=== PATIENT | female | born 1945 | race Caucasian/White ===

== ENCOUNTER 2016-07-02 13:53 | Observation (INO) | payer OTHER ==
[~2016-07-02] VITALS: Ht 170.2 cm; Wt 102.6 kg
[2016-07-02 14:55] LABS: HEMATOCRIT 35.6 % (36.0-46.0); MCH 29.9 PG (29.0-34.0); MCHC 35.4 G/DL (30.0-36.0); MCV 84.4 FL (83-99); PLATELET COUNT 261 K/uL (156-360); RBC DIS.WIDTH-SD 38.9 % (39-53); RED BLOOD COUNT 4.22 M/uL (3.80-5.20); WHITE BLOOD COUNT 6.5 K/uL (4.1-10.2)
[2016-07-02 15:05] LABS: CHLORIDE 104 mEq/L (99-109); POTASSIUM 3.9 mEq/L (3.7-5.4); SODIUM 137 mEq/L (136-147)
[2016-07-02 15:07] LABS: GLUCOSE 93 mg/dL (70-99)
[2016-07-02 15:08] LABS: ANION GAP 11 MEQ/L (2-14)
[2016-07-02 15:10] LABS: GFR ESTIMATE (CALCULATED) > 59 mL/min/
[2016-07-02 15:11] LABS: UREA NITROGEN (BUN) 15 mg/dL (9-23)
[2016-07-02 15:17] LABS: TROP-I INTERPRETATION NEGATIVE; TROPONIN-I < 0.01 ng/mL (0.0-0.30)
[2016-07-02] MEDS ORDERED: CYCLOBENZAPRINE10 MG PO (18:51)
[2016-07-02] MEDS ORDERED: HYDROCODON-ACE1 EAC7 PO (18:52)
[2016-07-02] MEDS ORDERED: GABAPENTIN300 MG PO ×2 (18:52→18:53)
[2016-07-02] MEDS ORDERED: CITALOPRAM HBR20 MG PO (18:53)
[2016-07-02] MEDS ORDERED: ONE DAILY FOR1 EAC3 PO (18:54)
[2016-07-02] MEDS ORDERED: MELATONIN5 M1 PO (18:54)
[2016-07-02] MEDS ORDERED: LISINOPRIL-HCT1 EAC3 PO (18:57)
[2016-07-02 22:36] VITALS: BP 156/80
[2016-07-03 04:07] VITALS: BP 121/67
[2016-07-03 06:27] LABS: ADD MIUA? NO; BILIRUBIN NEGATIVE; BLOOD NEGATIVE; COLOR YELLOW ((YELLOW)); GLUCOSE (STRIP) NEGATIVE; KETONES NEGATIVE; LEUKOCYTES NEGATIVE; NITRITE NEGATIVE; PH, URINE 6.5 (5-8); PROTEIN (STRIP) NEGATIVE; SPECIFIC GRAVITY 1.007 (1.000-1.030); UCUL ADDED? NO; UROBILINOGEN 0.2 MG/DL (0.2-1.0)
[2016-07-03 06:28] LABS: EOSINOPHIL (%) 0 % (0-5); HEMATOCRIT 32.9 % (36.0-46.0); IMMATURE GRANULOCYTE (%) 0.2 % (0.0-0.7); LYMPHOCYTE COUNT 0.8 K/uL (1.0-2.8); MCH 29.6 PG (29.0-34.0); MEAN PLAT.VOLUME 9.1 uM^3 (9.5-12.4); MONOCYTE (%) 1.4 % (3-12); MONOCYTE COUNT 0.1 K/uL (0-0.8); NEUTROPHIL (%) 78.4 % (45-76); NEUTROPHIL COUNT 3.3 K/uL (1.8-6.4); PLATELET COUNT 196 K/uL (156-360); RBC DIS.WIDTH-CV 13.4 % (11.8-14.6); RBC DIS.WIDTH-SD 42.6 % (39-53); RED BLOOD COUNT 3.78 M/uL (3.80-5.20)
[2016-07-03 06:29] LABS: WHITE BLOOD COUNT 4.2 K/uL (4.1-10.2)
[2016-07-03 06:40] LABS: ANION GAP 10 MEQ/L (2-14); CHLORIDE 107 MEQ/L (99-109); GFR ESTIMATE (CALCULATED) > 59 mL/min/; SAMPLE HEMOLYSIS CHECK 0; SAMPLE ICTERIC CHECK 0; SAMPLE LIPEMIA CHECK 0; SODIUM 139 MEQ/L (136-147); UREA NITROGEN (BUN) 12 mg/dL (9-23)
[2016-07-03 06:42] LABS: GLUCOSE 140 mg/dL (70-99)
[2016-07-03 07:05] VITALS: BP 123/58
[2016-07-03 10:40] LABS: INTERNAL CONTROL VALID? YES
[2016-07-03 12:25] VITALS: BP 132/73
[2016-07-03] MEDS ORDERED: TESSALON PERLE100 MG PO (13:02)
[2016-07-03] MEDS ORDERED: PROAIR HFA8.5 GM IH (13:02)
[2016-07-03] MEDS ORDERED: PREDNISONE20 MG PO (13:02)
[2016-07-03] MEDS ORDERED: MUCINEX1200 MG PO (13:02)
[2016-07-03] MEDS ORDERED: AZITHROMYCIN500 M1 PO (13:02)
== END 2016-07-03 13:44 | disposition home or self-care (01) ==
LOC: EME 13:53 → EDOF 21:25 → 5WEST 22:22
PROVIDERS: Hospitalist
DX: J20.9 Acute bronchitis, unspecified (principal); R06.02 Shortness of breath; I10 Essential (primary) hypertension; R05 Cough; Z96.653 Presence of artificial knee joint, bilateral; R06.2 Wheezing; R50.9 Fever, unspecified
CPT/HCPCS: 71020; 71275; 80048; 81003; 83880; 84484; 85025; 85027; 85379; 87070; 87205; 87449; 93005; 93970; 94640; 94640 76; 94760; 99202; 99281; 99285; G0378; J0456; J0696; J1650; J2930; J7030; J7050; J7512

== ENCOUNTER 2018-01-17 14:39 | Emergency (ER) | payer OTHER ==
[~2018-01-17] VITALS: Ht 172.7 cm; Wt 97.9 kg
[~2018-01-17 14:39] MED LIST: AZITHROMYCIN500 M1 PO; CITALOPRAM HBR20 MG PO; CYCLOBENZAPRINE10 MG PO; GABAPENTIN300 MG PO; HYDROCODON-ACE1 EAC7 PO; LISINOPRIL-HCT1 EAC3 PO; MELATONIN5 M1 PO; MUCINEX1200 MG PO; ONE DAILY FOR1 EAC3 PO; PREDNISONE20 MG PO; PROAIR HFA8.5 GM IH; TESSALON PERLE100 MG PO
[2018-01-17 15:37] LABS: HEMATOCRIT 34.8 % (36.0-46.0); HEMOGLOBIN 12.3 G/DL (11.9-15.5); MCH 29.8 PG (29.0-34.0); MCHC 35.3 G/DL (30.0-36.0); MCV 84.3 FL (83-99); PLATELET COUNT 224 K/uL (156-360); RBC DIS.WIDTH-CV 12.5 % (11.8-14.6); RBC DIS.WIDTH-SD 37.6 % (39-53); RED BLOOD COUNT 4.13 M/uL (3.80-5.20); WHITE BLOOD COUNT 7.6 K/uL (4.1-10.2)
[2018-01-17 15:41] LABS: APPEARANCE CLEAR ((CLEAR)); BILIRUBIN NEGATIVE; BLOOD NEGATIVE; COLOR AMBER ((YELLOW)); GLUCOSE (STRIP) NEGATIVE; KETONES NEGATIVE; LEUKOCYTES NEGATIVE; NITRITE POSITIVE; PROTEIN (STRIP) NEGATIVE; SPECIFIC GRAVITY 1.011 (1.000-1.030)
[2018-01-17 15:46] LABS: CHLORIDE 101 mEq/L (99-109); POTASSIUM 4.2 mEq/L (3.7-5.4); SODIUM 135 mEq/L (136-147)
[2018-01-17 15:46] LABS: BACTERIA NONE SEEN /HPF; EPITHELIAL CELLS RARE /HPF; MUCUS TRACE /LPF; RED BLOOD CELLS 0-5 /HPF (0-5); UCUL ADDED? NO; WHITE BLOOD CELLS 0-5 /HPF (0-5)
[2018-01-17 15:48] LABS: GLUCOSE 107 mg/dL (70-99)
[2018-01-17 15:52] LABS: CREATININE 1.3 mg/dL (0.6-1.3); GFR ESTIMATE (CALCULATED) 43 mL/min/
[2018-01-17 15:53] LABS: UREA NITROGEN (BUN) 23 mg/dL (9-23)
[2018-01-17] MEDS ORDERED: ZOFRAN ODT4 MG PO (16:02)
[2018-01-17] MEDS ORDERED: BACTRIM,SEPT1 TABLET PO (16:02)
[2018-01-17 16:23] VITALS: BP 160/88
== END 2018-01-17 16:24 | disposition home or self-care (01) ==
LOC: EME 14:39
DX: N39.0 Urinary tract infection, site not specified (principal); I10 Essential (primary) hypertension; F41.9 Anxiety disorder, unspecified; F32.9 Major depressive disorder, single episode, unspecified; Z96.653 Presence of artificial knee joint, bilateral; Z90.49 Acquired absence of other specified parts of digestive tract; Z90.710 Acquired absence of both cervix and uterus
CPT/HCPCS: 80048; 81003; 85027; 99281; 99284; J0696; J2405; J7030